=== PATIENT | female | born 1960 | race Caucasian/White ===

== ENCOUNTER 2018-06-23 16:30 | Emergency (ER) | payer MEDICAID, OTHER ==
[~2018-06-23] VITALS: Ht 162.6 cm; Wt 99.7 kg
[~2018-06-23 16:30] MED LIST: IBUP-1542 PO
[2018-06-23 16:31] VITALS: BP 151/91; PULSE 62; RESP 18; Ht 162.6 cm; Wt 99.7 kg
[2018-06-23] MEDS ORDERED: AMOX1TAB9 PO (17:34)
[2018-06-23] MEDS ORDERED: CETI10TA19 PO (17:36)
--- NOTE | 2018-06-23 18:44 | ERD ---
ER Documentation Chief Complaint Chief Complaint head pain and cough x 1 week left eye pain x 1 month HPI History of Present Illness: 57-year-old female with past medical history including diabetes and hyperlipidemia coming in today with complaint of headache and cough. Headache is been present for 5 days, cough has been present for 1 week, pain to bilateral cheek, more particularly on the left side has been present for 1 month worsening. Associated symptoms includes runny nose, nasal congestion. At home pharmacological/nonpharmacological treatment for symptoms: Denies Denies social concerns; Denies recent foreign travel ROS All systems reviewed and are negative except as per history of present illness. Medications Home Meds Active Scripts Cetirizine Hcl* (Cetirizine Hcl*) 10 Mg Tablet, 10 MG PO DAILY for cough/allergies, #30 TAB Prov:SHELDON MANN NP 06/23/18 Amoxicillin/Potassium Clav (Amox-Clav 500-125 mg Tablet) 500-125 mg Tab, 1 TAB PO BID for chronic sinus infection for 14 Days, TAB Prov:SHELDON MANN NP 06/23/18 Ibuprofen* (Ibuprofen*) 600 Mg Tablet, 600 MG PO Q6H, #30 TAB Prov:AMIRA VILLA PA-C 10/22/15 Allergies Allergies: Coded Allergies: No Known Allergy (Unverified , 10/21/15) PMhx/Soc Medical and Surgical Hx: pt denies Medical Hx, pt denies Surgical Hx Hx Alcohol Use: No Hx Substance Use: No Hx Tobacco Use: No FmHx Family History: diabetes; No coronary disease Physical Exam Vitals Vital Signs Date Temp Pulse Resp B/P (MAP) Pulse Ox O2 O2 Flow FiO2 Time Delivery Rate 06/23/18 98.3 62 18 151/91 97 16:31 (111) Physical Exam Const: No acute distress, afebrile Head: Atraumatic , tenderness to palpation over frontal and maxillary sinuses Eyes: Normal Conjunctiva ENT: Normal External Ears, Mouth. Nasal turbinates swollen. Neck: Full range of motion. No meningismus. Resp: Clear to auscultation bilaterally Cardio: Regular rate and rhythm, no murmurs Abd: Soft, non tender, non distended. No guarding, no masses, no rigidity Skin: No petechiae or rashes Back: No midline or flank tenderness Ext: No cyanosis, or edema Neur: Awake and alert x3, speaking in clear sentences, no focal deficits or facial asymmetry Psych: Normal Mood and Affect Procedures/MDM ED course includes a thorough examination and history. Medications: Imaging: Labs: Low suspicion for life-threatening medical emergency. Low suspicion for infectious or HEENT medical emergency that requires hospitalization or immediate surgical intervention. No changes in vision. Otherwise healthy patient presenting with constellation of symptoms likely representing chronic sinusitis as characterized by history, physical exam findings. Due to patient being immunocompromised with diabetes, will treat for chronic sinusitis with Augmentin for 2 weeks with strict follow-up with primary care doctor next week with possible referral to ENT. No respiratory distress, otherwise relatively well appearing and nontoxic. Patient educated on diagnoses, prescriptions, follow-up care, return precautions. Strict return precautions given for worsening condition; questions answered discharge. Disposition for discharge with followup in 2 days with PCP/clinic. Departure Diagnosis: Primary Impression: Chronic sinusitis Sinusitis location: other Qualified Codes: J32.8 - Other chronic sinusitis Condition: Stable Patient Instructions: Sinusitis, Abx Tx Referrals: ON LICENSE OF [facility] YOU HAVE RECEIVED A MEDICAL SCREENING EXAM AND THE RESULTS INDICATE THAT YOU DO NOT HAVE A CONDITION THAT REQUIRES URGENT TREATMENT IN THE EMERGENCY DEPARTMENT. FURTHER EVALUATION AND TREATMENT OF YOUR CONDITION CAN WAIT UNTIL YOU ARE SEEN IN YOUR DOCTORS OFFICE WITHIN THE NEXT 1-2 DAYS. IT IS YOUR RESPONSIBILITY TO MAKE AN APPOINTMENT FOR FOLOW-UP CARE. IF YOU HAVE A PRIMARY DOCTOR --you should call your primary doctor and schedule an appointment IF YOU DO NOT HAVE A PRIMARY DOCTOR YOU CAN CALL OUR PHYSICIAN REFERRAL HOTLINE AT IF YOU CAN NOT AFFORD TO SEE A PHYSICIAN YOU CAN CHOSE FROM THE FOLLOWING ON LICENSE OF [facility] [address] [facility] [address] [facility] [address] [facility] [address] [facility] [address] [facility] [facility]. [address] [facility]. [facility] YOU HAVE RECEIVED A MEDICAL SCREENING EXAM AND THE RESULTS INDICATE THAT YOU DO NOT HAVE A CONDITION THAT REQUIRES URGENT TREATMENT IN THE EMERGENCY DEPARTMENT. FURTHER EVALUATION AND TREATMENT OF YOUR CONDITION CAN WAIT UNTIL YOU ARE SEEN IN YOUR DOCTORS OFFICE WITHIN THE NEXT 1-2 DAYS. IT IS YOUR RESPONSIBILITY TO MAKE AN APPOINTMENT FOR FOLOW-UP CARE. IF YOU HAVE A PRIMARY DOCTOR --you should call your primary doctor and schedule and appointment IF YOU DO NOT HAVE A PRIMARY DOCTOR YOU CAN CALL OUR PHYSICIAN REFERRAL HOTLINE AT . IF YOU CAN NOT AFFORD TO SEE A PHYSICIAN YOU CAN CHOSE FROM THE FOLLOWING [facility] INSTITUTIONS: [facility] [address] [place] [address] [facility] [address] [place] [address] [facility] [address] [place] [address] Additional Instructions: Muchas arti por permitirnos participar en mccall cuidado. Mccall artem y seguridad es nuestra principal prioridad en [facility]. Es importante leer todas las instrucciones de leon y la educacin que se proporcionan en mccall paquete de leon. Llame a mccall mdico de atencin primaria MAANA para irma [place] tom los prximos 2 a 4 nguyễn y lleve toda la informacin y los medicamentos recetados. Llene las recetas y siga exactamente las instrucciones de la etiqueta. -Augmentina (amoxicilina / cido clavulnico) es un antibitico; tome rodríguez medicamento todos los nguyễn cada 12 horas dylan se indica en mccall receta. Debe completar todo el curso de tratamiento que figura en mccall receta. [place] es muy importante porque se necesitan varios nguyễn para eliminar las bacterias que causan la infeccin. -Cetirizina dylan antihistamnico que no debe causar somnolencia; tome rodríguez medicamento todos los nguyễn para los sntomas de alergia / tos / secrecin nasal. Si los sntomas empeoran y mccall proveedor no est disponible, regrese inmediatamente al Departamento de Emergencias. ------- Thank you very much for allowing us to participate in your care. Your health and safety is our top priority at [facility]. It is important to read all discharge instructions and education provided in your discharge packet. Call your primary care doctor TOMORROW for an appointment during the next 2-4 days and bring all the information and medications prescribed. Have prescriptions filled and follow precisely the directions on the label. -Augmentin (amoxicillin/clavulanic acid) is an antibiotic; take this medication every day every 12hours as listed on your prescription. You must complete the entire course of treatment that is listed on your prescription this is very important because it takes a certain number of days to kill the bacteria that is causing the infection. -Cetirizine as an antihistamine that should not cause drowsiness; take this medication every day for allergy-like symptoms/cough/runny nose. If the symptoms get worse and your provider is unavailable, return to the Emergency Department immediately. SHELDON MANN NP Jun 23, 2018 18:44
== END 2018-06-23 17:48 | disposition home or self-care (01) ==
LOC: FTE 16:30
DX: J32.8 Other chronic sinusitis (principal); E11.9 Type 2 diabetes mellitus without complications
CPT/HCPCS: 99283